=== PATIENT | female | born 1980 | race Caucasian/White ===

== ENCOUNTER 2018-05-14 22:02 | Outpatient (REF) | payer BC, SELFPAY ==
[2018-05-14 22:31] LABS: Cholesterol 211 mg/dL (50-200); Glucose 90 mg/dL (70-100); HDL Cholesterol 69 mg/dL (40-60); LDL CHOLESTEROL 124 mg/dL (<100); Triglyceride 67 mg/dL (30-150)
== END 2018-05-14 22:22 ==
LOC: NCHCN 22:02
PROVIDERS: PCP Family Medicine; Visit Provider Family Medicine
DX: Z00.00 Encounter for general adult medical examination without abnormal findings (principal); Z13.1 Encounter for screening for diabetes mellitus; Z13.220 Encounter for screening for lipoid disorders
CPT/HCPCS: 80061; 82947; 83721

== ENCOUNTER 2021-05-24 18:30 | Outpatient (REF) | payer BC, SELFPAY ==
[2021-05-24 19:38] LABS: HGB 14.5 g/dL (11.2-15.7)
[2021-05-24 20:28] LABS: Hemoglobin A1C 5.2 % (<5.7)
[2021-05-24 20:50] LABS: Calculated LDL 145 mg/dL (<100); Cholesterol 238 mg/dL (<200); HDL Cholesterol 75 mg/dL (40-60); Triglyceride 90 mg/dL (<150)
== END 2021-05-24 18:31 | disposition home or self-care (01) ==
LOC: NCHCN 18:30
PROVIDERS: PCP Family Medicine; Visit Provider Family Medicine
DX: Z00.00 Encounter for general adult medical examination without abnormal findings (principal); Z13.1 Encounter for screening for diabetes mellitus; Z13.220 Encounter for screening for lipoid disorders
CPT/HCPCS: 80061; 83036; 85014; 85018

== ENCOUNTER 2022-06-18 11:22 | Outpatient (REF) | payer BC, SELFPAY ==
--- NOTE | 2022-06-18 10:45 | PAPFT_PTH ---
PATIENT: Aga Oliva LOC: [facility]#:[id number] AGE/SX: 41/F ROOM: RE06/18/[address]: Sapna Camargo V : 1980 BED: DIS: 06/18/2022 SPEC #: [id number] RECD: 06/18/22 17:08 STATUS: ROSATania REQ #: [id number] LEANNA: 06/18/22 10:[address]: Katina Gutierrez DEPT: [facility] Cytology RECD BY: Shaila Flores ENTERED: 06/18/22 17:08 SP TYPE: PAPFT OTHR DR: Sapna Camargo V Tissues: 1 - CX/ENDOCX FOR PAP SMEARS Procedures: PAP THIN PREP/[facility] Screening HPV DNA PROBE Comments: [id number]
== END 2022-06-18 11:23 | disposition home or self-care (01) ==
LOC: NCHCN 11:22
PROVIDERS: PCP Nurse Practitioner Family; Visit Provider Family Medicine
DX: Z12.4 Encounter for screening for malignant neoplasm of cervix (principal); Z01.419 Encounter for gynecological examination (general) (routine) without abnormal findings; Z11.51 Encounter for screening for human papillomavirus (HPV)
CPT/HCPCS: 88142; 87624